=== PATIENT | female | born 1960 | race African-American/Black ===

== ENCOUNTER 2018-03-22 13:18 | Emergency (ER) | payer OTHER ==
[~2018-03-22] VITALS: Ht 170.2 cm; Wt 81.8 kg
[~2018-03-22 13:18] MED LIST: EPIN0.3P2 IM; OMEGA 3; P50 PO; VIT B 12; VIT D; [UNRECOGNIZED DRUG - REMARK]
[2018-03-22 13:34] VITALS: BP 141/80
[2018-03-22] MEDS ORDERED: ACETAMINOPHEN 325MG TABLET PO ONE (14:15)
[2018-03-22] MEDS ORDERED: BACITRACIN ZINC OINT UDPKT TOP ONE (14:15)
[2018-03-22] MEDS ORDERED: TETANUS, DIPHTHERIA, PERTUSSIS VAC/PF 0.5ML (>7YR OLD) IM ONE (14:15)
== END 2018-03-22 15:21 | disposition home or self-care (01) ==
LOC: ER 13:41
DX: L03.012 Cellulitis of left finger (principal)
CPT/HCPCS: 90471; 90715; 99283